=== PATIENT | male | born 1960 | race Hispanic/Latino ===

== ENCOUNTER 2017-05-01 08:54 | Emergency (ER) | payer MEDICAID, MEDICARE ==
[2017-05-01 09:15] VITALS: BMI 32.8
[2017-05-01 09:26] VITALS: O2SAT 98
[2017-05-01] MEDS ORDERED: Lidocaine 5% Patch TD STA (09:32)
[2017-05-01] MEDS ORDERED: Lidocaine 5% Patch TD ONE (09:38)
--- NOTE | 2017-05-01 09:48 | C.PDOC ---
History Of Present Illness NEW ONSET NECK PAIN X 3-4 DAYS. PS HAS BEEN COUGHING FREQUENTLY X 1 WEEK. MID NECK RADIATE R SIDE TO LEGS. AWOKE THIS MORNING W TINGLING R FINGERTIPS AND OUTSIDE OF R ARM, NOW RESOLVED. ALSO W R LEG "UNCOMFORTABLE" NOW RESOLVED. NO FOCAL WEAKNESS. NO FEVER, OTHER ASSOC SX. DENIES HO SMOKING. COMPLIANT W REG MEDS. 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 DENIES HO PRIOR NECK PAIN OR CHRONIC NECK/BACK PAIN. NO PRIOR TRAUMA. EXAM MILD DIST NONTOXIC HEENT NEG NECK LIMITED FULL L LAT ROTATION DUE TO PAIN. FULL FLEX/EXT W REPRODUC PAIN. NO SPASM. NO SPINAL TEND. ATRAUM NO SWELL/MASS NEURO INTACT NO FOCAL DEF GAIT WNL REMAINDER NEG Time Seen by Provider: 05/01/17 09:22 Chief Complaint (Nursing): Back Pain History Per: Patient History/Exam Limitations: no limitations Onset/Duration Of Symptoms: Days (3-4) Past Medical History Reviewed: Historical Data, Nursing Documentation, Vital Signs Vital Signs: Last Vital Signs Temp 97.8 F 05/01/17 10:17 Pulse 70 05/01/17 10:17 Resp 16 05/01/17 10:17 BP 132/78 05/01/17 10:17 Pulse Ox 98 05/01/17 10:30 - Medical History PMH: HTN (NO MEDS), Hypercholesterolemia (NO MEDS), Sleep Apnea Family History: States: No Known Family Hx - Social History Hx Tobacco Use: No (2ND HAND SMOKE) Hx Alcohol Use: Yes (SOCIALLY) Hx Substance Use: No - Immunization History Hx Tetanus Toxoid Vaccination: No Hx Influenza Vaccination: No Hx Pneumococcal Vaccination: No Review Of Systems Except As Marked, All Systems Reviewed And Found Negative. Constitutional: Negative for: Fever Cardiovascular: Negative for: Chest Pain Respiratory: Negative for: Shortness of Breath Musculoskeletal: Positive for: Neck Pain (Mid neck radiating to right side of legs). Negative for: Shoulder Pain, Back Pain Neurological: Negative for: Weakness, Numbness Physical Exam - Physical Exam Appears: Non-toxic, In Acute Distress (Mild) Skin: Warm, Dry, No Rash Head: Atraumatic, Normacephalic Eye(s): bilateral: Normal Inspection, PERRL, EOMI Ear(s): Bilateral: Normal Oral Mucosa: Moist Throat: Normal, No Erythema, No Exudate, No Drooling Neck: Supple, Other (Limited full lest lateral rotation due to pain. Full flex/ extention with reproducible pain. No spasm.) Back: Normal Inspection, No Muscle Spasm, No Paraspinal Tenderness Extremity: Normal ROM, No Swelling Neurological/Psych: Oriented x3, Normal Speech, Normal Motor, Normal Sensation Gait: Steady ED Course And Treatment O2 Sat by Pulse Oximetry: 98 (RA) Pulse Ox Interpretation: Normal - Radiology CXR: Interpreted by Me, Viewed By Me CXR Interpretation: Yes: No Acute Disease - Other Rad X-Ray - Cervical Spine X-Ray: Interpreted by Me, Viewed By Me Interpretation: NEG Medical Decision Making Medical Decision Making: PLAN: * X-Ray - Cervical Spine * CXR * Lidoderm TD * Flexeril PO * Gabapentin PO * Tessalon Perles PO * Toradol IM Disposition Counseled Patient/Family Regarding: Studies Performed, Diagnosis, Need For Followup, Rx Given - Disposition Referrals: YOUR,PMD [Other] Disposition: HOME/ ROUTINE Disposition Time: 10:08 Condition: IMPROVED Additional Instructions: APPLY PATCH TO AFFECTED AREA. MAX 3 PATCHES AT A TIME. REMOVE PATCH 12 HOURS AFTER INITIAL APPLICATION. ALTERNATE 12 HOURS ON, 12 HOURS OFF. Prescriptions: Benzonatate [Tessalon Perles] 200 mg PO TID PRN #15 sgl PRN Reason: Cough Cyclobenzaprine [Flexeril] 10 mg PO TID #15 tab Dexamethasone [Decadron] 12 mg PO ONCE #3 tab Gabapentin [Neurontin] 300 mg PO TID #30 cap Ibuprofen [Motrin] 600 mg PO Q6 #30 tab Lidocaine 5% [Lidoderm] 1 ea TD PRN PRN #10 patch PRN Reason: Pain, Moderate (4-7) Instructions: Cervical Radiculopathy (ED) Forms: [facility] (Moroccan), Work Excuse - Clinical Impression Clinical Impression: Neck pain, Paresthesia, URI (upper respiratory infection) - Scribe Statement The provider has reviewed the documentation as recorded by the Syedibradha Thompson Provider Attestation: All medical record entries made by the Scribe were at my direction and personally dictated by me. I have reviewed the chart and agree that the record accurately reflects my personal performance of the history, physical exam, medical decision making, and the department course for this patient. I have also personally directed, reviewed, and agree with the discharge instructions and disposition.
[2017-05-01 10:18] VITALS: BP 132/78; PULSE 70; RESP 16; TEMP 97.8
--- NOTE | 2017-05-01 10:53 | RAD ---
PROCEDURE: Cervical Spine Radiographs. HISTORY: Pain. COMPARISON: None. FINDINGS: BONES: There is straightening of the cervical spine with loss of normal cervical lordosis. Vertebral alignment is normal. Vertebral height is maintained. There is no acute fracture or traumatic anterior listhesis. The craniocervical junction is normal. The atlantoaxial joint is normal. DISC SPACES: There is mild multilevel degenerative disc disease with anterior spurring, mild reduced disc heights and mild multilevel facet arthropathy. There is severe right neural foraminal stenosis at C3-4 and left neural foraminal stenosis at C3-4 and C4-5. SOFT TISSUES: Normal. No prevertebral soft tissue swelling. OTHER FINDINGS: There is nuchal ligament ossification at C5, C6 and C7. IMPRESSION: Mild multilevel degenerative disc disease with severe bilateral neural foraminal stenosis at C3-4 and severe left neural foraminal stenosis at C4-5. Straightening of the cervical spine may be positional or related to muscle spasm.
== END 2017-05-01 10:42 | disposition home or self-care (01) ==
LOC: C.ER 08:54
DX: J06.9 Acute upper respiratory infection, unspecified (principal); R20.2 Paresthesia of skin; M54.2 Cervicalgia
CPT/HCPCS: 71020; 72052; 96372; 99283; J1885

== ENCOUNTER 2018-09-20 07:10 | Day surgery (SDC) | payer MEDICAID ==
[2018-09-17 12:24] VITALS: BMI 31.5
[2018-09-20] MEDS ORDERED: Lactated Ringer's 500 ML IV ONE ×2 (08:04)
[2018-09-20] MEDS ORDERED: Propofol 10 mg/ml Inj (20 ML) ONE ×2 (08:35→08:53)
[2018-09-20] MEDS ORDERED: Simethicone 40 mg/0.6 ml Liquid (30 ml) ONE ×2 (08:53→08:56)
[2018-09-20] MEDS ORDERED: Midazolam 2 MG/2 ML VIAL ONE (09:15)
[2018-09-20 09:46] VITALS: TEMP 98.9
[2018-09-20 10:45] VITALS: BP 101/65; PULSE 63; RESP 19; O2SAT 97
== END 2018-09-20 10:35 | disposition home or self-care (01) ==
LOC: C.ENDO 07:10
PROVIDERS: ATTEND Internal Medicine Gastroenterology
DX: Z12.11 Encounter for screening for malignant neoplasm of colon (principal); K29.70 Gastritis, unspecified, without bleeding; K20.9 Esophagitis, unspecified; K92.0 Hematemesis; R13.10 Dysphagia, unspecified; D12.4 Benign neoplasm of descending colon
CPT/HCPCS: 43239; 45381; 45385; 82948; 88305; 88312; 88313; 88342; J2250; J2704; J3010; J7120